=== PATIENT | male | born 2005 | race Caucasian/White ===

== ENCOUNTER 2024-07-13 19:03 | Emergency (ER) | payer BC ==
[~2024-07-13] VITALS: Ht 172.7 cm; Wt 65.8 kg
[2024-07-13 20:49] VITALS: BP 128/66; TEMP 98.2; O2SAT 98
== END 2024-07-13 20:50 | disposition home or self-care (01) ==
LOC: ER 19:20
DX: S01.01XA Laceration without foreign body of scalp, initial encounter (principal); S09.8XXA Other specified injuries of head, initial encounter; F32.A Depression, unspecified; W01.0XXA Fall on same level from slipping, tripping and stumbling without subsequent striking against object, initial encounter; Y93.89 Activity, other specified; Y92.89 Other specified places as the place of occurrence of the external cause; Y99.8 Other external cause status
CPT/HCPCS: A4606; A4663